=== PATIENT | female | born 1985 | race Caucasian/White ===

== ENCOUNTER 2016-04-20 20:45 | Emergency (ER) | payer OTHER ==
[2016-04-20 20:54] VITALS: RESP 18
[2016-04-20] MEDS ORDERED: TDAP ADULT 0.5 ML INJ (BOOSTRIX) IM ONE (22:29)
--- NOTE | 2016-04-20 22:40 | EDPHY ---
General - History Smoking Status: Never smoked Narrative: CHIEF COMPLAINT: pain, finger injury HISTORY OF PRESENT ILLNESS: playing dodge ball this evening when she went to turkey picker a ball. She had the ball struck her in the left index finger and jammed. Sudden onset of pain and leg down to see that there was bone visible on the finger. There is laceration on the volar medial aspect of the left index finger. Moderate to severe pain. Worse with palpation and movement. She has not tried to bend the finger. No pain elsewhere. Uncertain when her last tetanus was updated. bleeding contain with pressure. No numbness or tingling. No other associated complaints or modifying factors. PRIOR ORTHO INJURIES: None ESTABLISHED ORTHOPEDIST: none REVIEW OF SYSTEMS: Ten systems reviewed and are negative unless otherwise noted in the HPI EXAMINATION General Appearance: Alert, no distress Cardiovascular: Pulses normal throughout. symmetric radial pulses 2+. Brisk cap refill Neurological: A&O, sensory symmetric, strength symmetric Skin: Warm and dry . No rash. Laceration over the left index finger, PIP with visible proximal phalanx. Extremities: Moderate tenderness to palpation of the left index finger over the area of dislocation. Range of motion not tested for the index finger but is intact otherwise. Visible open dislocation with laceration as noted. Neurovascular intact distally with brisk cap refill. Range of motion not tested secondary to open dislocation. Psychiatric: Mood and affect normal DIFFERENTIAL DIAGNOSES: Including but not limited to Fracture, fracture dislocation, ligamentous sprain MDM: 10:25 p.m. open dislocation of the left index finger. I have discussed the case with the on-call hand surgeon Dr. Guthrie. He has instructed me to irrigate the wound prior to reduction, discharged home with antibiotics with a large bulky splint in place. He would like to see the patient in 2 days in his office. 11:45 p.m. after good anesthesia with digital block, the wound was copiously irrigated with greater than 1 L fluid. I then reduced the joint without complication with good success. This was visualized on post reduction film. Range of motion was fully intact post reduction. There is mild laxity with valgus stress but flexion is fully intact. I then closed the wound. She has been given antibiotics, prescriptions for pain medication and antibiotics at home. She will be placed in a bulky dressing per Dr. Guthrie. She is to contact his office in the morning 1st thing for follow-up this week. PROCEDURE: Digital Block Indication:Finger laceration Consent: Verbal Location: Left index finger Anesthesia: Lidocaine 1% plain, 0.25% Marcaine plain, 5mL Description: after her cleaning the base of the left index finger, 5 mL of anesthesia was infused. There was good anesthesia. Tolerated well. No complications. Brisk cap refill following the procedure. Complications: None PROCEDURE: Laceration repair Consent: Verbal Location: Left index finger, volar Length of repair: 2.25 cm Complexity: complex Layer involvement: single Anesthesia: digital block Irrigation: Extensive Debridement: minimal Procedure description: after good anesthesia, the wound was copiously irrigated with Betadine and sterile saline. Joint was reduced and there was good anatomic alignment and good perfusion distally. The wound was then closed with 7, simple interrupted sutures. Good hemostasis. Good wound approximation. Suture/Staple material: 5-0 Ethilon, 7 simple interrupted sutures Wound care: Routine as discussed Suture/Staple removal: 7-10 Days PROCEDURE: open reduction left index finger PIP Consent: Verbal Location: left index finger PIP, open dislocation Anesthesia: digital block Procedure: after good anesthesia, the wound was copiously irrigated. I then reduced the finger with traction and medial manipulation. There was good reduction. This was visualized on post reduction film. good perfusion distal to the wound post reduction. Complications: None Post-reduction film: anatomic alignment ED Precautions: Worsening pain. Erythema, edema, cyanosis, pallor, paresthesia or anesthesia. SUPERVISION: This patient was independently evaluated without the aide of supervising physician. Hand consultation with Dr. Talha Guthrie (Toro Jennings) Discussion: The patient wasevaluatedand managed by themidlevel provider. Idiscussed the patient's presentation and course with thephysicianassistantor nurse practitionerand agree with theevaluation. My co-signature indicates that I have reviewed this chart and I agree with the findings and plan of care as documented. I am the secondary supervisingphysician. (Dede Mathis) - Objective Vital Signs: Initial Vital Signs Temperature (C) 36.6 C 04/20/16 20:50 Heart Rate 80 04/20/16 20:50 Respiratory Rate 18 04/20/16 20:50 Blood Pressure 133/91 H 04/20/16 20:50 O2 Sat (%) 96 04/20/16 20:50 O2 Delivery Mode Room Air Allergies/Adverse Reactions: No Known Allergies Allergy (Unverified 04/20/16 20:54) Home Medications: Medication Instructions Recorded Cephalexin [Keflex (*)] 500 mg PO TID #30 cap 04/20/16 Hydrocodone/APAP 5/325 [[place] 1 - 2 tab PO Q4H PRN #20 tab 04/20/16 5/325 (*)] Ondansetron Odt [Zofran Odt 4 mg 4 mg PO Q6 PRN #12 tab 04/20/16 (*)] Medications Given: Discontinued Medications Hydrocodone Bitart/Acetaminophen ([place] 5/325mg Prepack#6) 1 btl TAKEHOME EDNOW ONE Stop: 04/20/16 23:43 Last Admin: 04/21/16 00:12 Dose: 1 btl Cephalexin (Keflex 500 Mg Prepack#4) 1 btl TAKEHOME EDNOW ONE PRN Reason: Protocol Stop: 04/20/16 23:44 Last Admin: 04/21/16 00:10 Dose: 1 btl Cephalexin HCl (Keflex) 500 mg PO EDNOW ONE PRN Reason: Protocol Stop: 04/20/16 23:43 Last Admin: 04/21/16 00:10 Dose: 500 mg Diphtheria/Tetanus/Acell Pertussis (Boostrix) 0.5 ml IM .ONCE ONE Stop: 04/20/16 22:30 Last Admin: 04/20/16 23:15 Dose: 0.5 ml Ondansetron HCl (Zofran Odt 4 Mg Prepack#2) 1 btl TAKEHOME EDNOW ONE Stop: 04/20/16 23:43 Last Admin: 04/21/16 00:11 Dose: 1 btl Departure - Departure Disposition: Home, Routine, Self-Care Clinical Impression: Open traumatic dislocation of proximal interphalangeal joint, Finger laceration Condition: Good Instructions: Care For Your Stitches (ED), Laceration (ED), Finger Dislocation (ED) Additional Instructions: wound care as discussed. Nonweightbearing to the left hand. Contact Hand surgeon in the morning for follow-up by at the latest. Return to the ER for worsening pain, fever, chills, redness or purulence from the wound. Referrals: NONE *PRIMARY CARE P,. [Primary Care Provider] - As per Instructions Talha Guthrie MD [Medical Doctor] - As per Instructions Prescriptions: Cephalexin [Keflex (*)] 500 mg PO TID #30 cap Hydrocodone/APAP 5/325 [[place] 5/325 (*)] 1 - 2 tab PO Q4H PRN #20 tab PRN Reason: Pain, Moderate Ondansetron Odt [Zofran Odt 4 mg (*)] 4 mg PO Q6 PRN #12 tab PRN Reason: Nausea/Vomiting, Use 1st
[2016-04-20] MEDS ORDERED: CEPHALEXIN 500 MG CAP PO ONE (23:42)
[2016-04-20] MEDS ORDERED: HYDROCOD/APAP 5/325 PREPACK#6 BTL TAKEHOME ONE (23:42)
[2016-04-20] MEDS ORDERED: ONDANSETRON 4MG PREPACK#2 BTL TAKEHOME ONE (23:42)
[2016-04-20] MEDS ORDERED: CEPHALEXIN 500MG PREPACK#4 BTL TAKEHOME ONE (23:43)
[2016-04-21 00:15] VITALS: BP 122/82; PULSE 76; TEMP 97.3; O2SAT 93
== END 2016-04-21 00:13 | disposition home or self-care (01) ==
PROC: 0RSXXZZ Reposition Left Finger Phalangeal Joint, External Approach (ICD-10-PCS; principal; 2016-04-20)
PROC: 0HQGXZZ Repair Left Hand Skin, External Approach (ICD-10-PCS; principal; 2016-04-20)
DX: S63.281A Dislocation of proximal interphalangeal joint of left index finger, initial encounter (principal); S61.211A Laceration without foreign body of left index finger without damage to nail, initial encounter; Z23 Encounter for immunization; W21.89XA Striking against or struck by other sports equipment, initial encounter; Y92.39 Other specified sports and athletic area as the place of occurrence of the external cause; Y99.8 Other external cause status; Y93.89 Activity, other specified